=== PATIENT | female | born 1940 | race Caucasian/White ===

== ENCOUNTER 2016-10-16 08:36 | Day surgery (SDC) | payer BC ==
[2016-10-11 11:58] VITALS: BMI 26.9
[2016-10-16] MEDS: GENTAMICIN SULFATE 0.3% OPHTHALMIC (EYE DROPS) 5ML BOTTLE ONE ×2 (09:35→09:55)
[2016-10-16] MEDS: PHENYLEPHRINE 2.5% OPHTH SOLN 15 ML BOTTLE ONE ×5 (09:35→09:55)
[2016-10-16] MEDS: TROPICAMIDE 1% OPHTH SOLN 15 ML BOTTLE ONE ×5 (09:35→09:55)
[2016-10-16] MEDS: FLURBIPROFEN 0.03% OPHTH SOLN 2.5 ML BOTTLE ONE ×5 (09:35→09:55)
[2016-10-16] MEDS: CYCLOPENTOLATE HCL 1% OPHTH SOLN 2 ML BOTTLE ONE ×5 (09:35→09:55)
[2016-10-16] MEDS ORDERED: ACETAMINOPHEN 325 MG TABLET (FP) PO ONE (09:40)
[2016-10-16] MEDS ORDERED: MIDAZOLAM HCL 2 MG/2 ML SINGLE DOSE VIAL ONE (10:34)
[2016-10-16] MEDS ORDERED: ACETAMINOPHEN 325 MG TABLET (FP) PO PRN (10:44)
[2016-10-16] MEDS ORDERED: ONDANSETRON 4 MG/2 ML VIAL IVPUSH PRN (12:24)
[2016-10-16] MEDS ORDERED: LACTATED RINGERS SOLUTION 1,000 ML IV SCH (12:30)
[2016-10-16 12:46] VITALS: PULSE 78; TEMP 98.2
[2016-10-16 13:50] VITALS: BP 131/62
--- NOTE | 2016-10-17 13:35 | OP ---
DATE OF OPERATION: 10/16/2016 PROCEDURE: Planned extracapsular cataract extraction, phacoemulsification, and insertion of posterior chamber lens implant in the left eye. SURGEON: Oliverio Pike MD TRAVEL PROFESSIONAL SURGEON: Oliverio Pike MD COMPLICATIONS: None. PREOPERATIVE DIAGNOSIS: Cataract, left eye. POSTOPERATIVE DIAGNOSIS: Cataract, left eye. FINDINGS AND PROCEDURE: After successful peribulbar anesthesia was given, the patient was prepped and draped in the usual manner to expose the left eye. The Tegaderm strips and lid speculum were inserted and the microscope brought in position over the left eye. A superior fornix-based flap was then fashioned for 12 mm using Cecilia scissors and 0.12 forceps and hemostasis achieved with wet-field cautery. A limbal groove was then fashioned for 3 mm with a crescent blade, dissected anterior into clear cornea. Then a 3-mm blade was used to enter the anterior chamber and then under Viscoat, a 360-degree anterior capsulotomy was performed and the leaflet removed from the eye. Phacoemulsification of entire nucleus was then done approximately 2 minutes time followed by irrigation and aspiration of all cortical material, leaving an intact posterior capsule and a red reflex present. ProVisc was injected in the posterior chamber to deepen the posterior capsule. The implant was inspected carefully and found to be free of defects, debris, and flaws. It was then folded, placed in the ProVisc-filled cartridge, the cartridge was placed in the injector and then injected into the eye such that the inferior haptic was placed in the inferior capsular bag and superior haptic in superior capsular bag and rotated in the horizontal position with a Sinskey hook. ProVisc was aspirated out, replaced with Miochol and Miostat and BSS. The wound was closed with a single interrupted 10-0 Ethilon suture and tested for leakage and none was found. Conjunctival Tenon flap was reapproximated, as mentioned, and at this point the implant was fixated in the capsular bag, centrally located with a round pupil, intact posterior capsule, and a red reflex present. Topical Betoptic S and Maxitrol ophthalmic suspensions were placed as well as bacitracin ophthalmic ointment. Tegaderm strips and the speculum were removed from the lids. The lids were closed and a patch and shield placed on the eye and the patient was then discharged from the operating room to the recovery area in good condition, having tolerated the procedure well. Kristal TOMPKINS/[id number]
== END 2016-10-16 13:52 | disposition home or self-care (01) ==
LOC: FASU 08:36
PROVIDERS: ATTEND Ophthalmology
PROC: 08RK3JZ Replacement of Left Lens with Synthetic Substitute, Percutaneous Approach (ICD-10-PCS; principal; 2016-10-16 11:30)
DX: H26.8 Other specified cataract (principal)